=== PATIENT | male | born 1965 | race Caucasian/White ===

== ENCOUNTER 2018-05-11 09:23 | Emergency (ER) | payer OTHER ==
[~2018-05-11] VITALS: Ht 170.2 cm; Wt 82.6 kg
[2018-05-11 09:26] VITALS: BP 173/106
--- NOTE | 2018-05-11 09:33 | NUR ---
PATIENT AMBULATED TO BED 7 AT THIS TIME.
--- NOTE | 2018-05-11 09:34 | NUR ---
53/M BIB CO-WORK WITH C/O 4TH LEFT FINGER LACERATION X EARLIER TODAY. PT STATE HE WAS AT WORK AND THE MACHINE CUT HIS FINGER, + BLEEDING, PRESSURED APPLIED, ABOUT 1/2 INCH CUT. MED HX: DENIES. PATIENT STATES PAIN OF 8/10 AT THIS TIME. PATIENT POSITIONED FOR COMFORT; HOB ELEVATED; BEDRAILS UP X2; BED DOWN. ER MD MADE AWARE OF PT STATUS.
--- NOTE | 2018-05-11 09:49 | NUR ---
PT LAC IRRIGATED WITH NORMAL SALINE, DR ORDERED TO HOLD
--- NOTE | 2018-05-11 09:49 | NUR ---
Patient being evaluated by DR FLOR at bedside.
[2018-05-11] MEDS ORDERED: BUPIVACAINE-MPF 0.25% 30 ML VIAL INJ ONE (09:50)
[2018-05-11] MEDS ORDERED: LIDOCAINE 1% 500 MG/50 ML VIAL INJ SCH (09:50)
[2018-05-11] MEDS ORDERED: BUPIVACAINE MPF 0.25% 10 ML VIAL INJ ONE (10:00)
[2018-05-11] MEDS ORDERED: LIDOCAINE MPF 1% 5mL VIAL ONE (10:02)
--- NOTE | 2018-05-11 10:25 | NUR ---
SUTURE 2 STITCHES TO 4TH LEFT FINGER DONE BY DR FLOR. PT TOLERATED PROCEDURE WELL.
[2018-05-11] MEDS ORDERED: BACITRACIN OINT 500 UNITS/GM PKT TP ONE ×2 (10:55→11:04)
[2018-05-11 11:10] VITALS: BP 142/91
--- NOTE | 2018-05-11 11:10 | NUR ---
Patient discharged with v/s stable. Written and verbal after care instructions given and explained. Patient verbalized understanding. Ambulatory with steady gait. All questions addressed prior to discharge. Advised to follow up with PMD.
== END 2018-05-11 11:10 | disposition home or self-care (01) ==
LOC: MED 09:23
DX: S61.215A Laceration without foreign body of left ring finger without damage to nail, initial encounter (principal); X58.XXXA Exposure to other specified factors, initial encounter; Y93.89 Activity, other specified; Y92.69 Other specified industrial and construction area as the place of occurrence of the external cause; Y99.0 Civilian activity done for income or pay
CPT/HCPCS: 12001; 90471; 90715; 99283; J2001; J3490

== ENCOUNTER 2018-05-13 15:28 | Emergency (ER) | payer OTHER ==
[~2018-05-13] VITALS: Ht 170.2 cm; Wt 83.0 kg
[2018-05-13 15:40] VITALS: BP 145/99
--- NOTE | 2018-05-13 16:44 | NUR ---
Patient ambulated to ER bed 6
--- NOTE | 2018-05-13 16:50 | NUR ---
53Y/M FOR RECHECK OF L MIDDLE FINGER, LAC REPAIR WAS DONE ON 05/11/18, HAD 2 STITCHES, - REDNESS, - SWELLING, - DISCHARGE. PT IS AAOX4, VSS AT THIS TIME, BED DOWN, BEDRAIL UP X 1, ER MD AWARE AND NOTIFIED OF PT STATUS. NO PMH NKA
--- NOTE | 2018-05-13 17:00 | NUR ---
Patient being evaluated by physician at bedside.
[2018-05-13 17:42] VITALS: BP 140/95
== END 2018-05-13 17:42 | disposition home or self-care (01) ==
LOC: MED 15:28
DX: S61.215D Laceration without foreign body of left ring finger without damage to nail, subsequent encounter (principal); X58.XXXD Exposure to other specified factors, subsequent encounter
CPT/HCPCS: 99283

== ENCOUNTER 2018-05-20 17:19 | Emergency (ER) | payer OTHER ==
[~2018-05-20] VITALS: Ht 170.2 cm; Wt 85.9 kg
[2018-05-20 17:25] VITALS: BP 168/101
--- NOTE | 2018-05-20 17:34 | NUR ---
PT. BIB FAMILY FOR STITCH REMOVAL TO L 4TH FINGER THAT WERE PLACE ON 05/11/18. DENIES ANY FEVER OR CHILLS. . DENIES N/V/D; SKIN IS PINK/WARM/DRY; AAOX4 WITH EVEN AND STEADY GAIT; LUNGS CLEAR BL; HR EVEN AND REGULAR; PT DENIES ANY FEVER, CP, SOB, OR COUGH AT THIS TIME; VSS; PATIENT POSITIONED FOR COMFORT; HOB ELEVATED; BEDRAILS UP X2; BED DOWN. ER MD MADE AWARE OF PT STATUS.
[2018-05-20 17:52] VITALS: BP 160/74
--- NOTE | 2018-05-20 18:04 | NUR ---
RECHECKED BP BEFORE DISCHARGE PT. NOTIFIED PT'S FAMILY TO CHECK WITH PCP, PT AND PT'S FAMILY VERBALIZED UNDERSTANDING.
== END 2018-05-20 17:50 | disposition home or self-care (01) ==
LOC: MED 17:19
DX: S61.215D Laceration without foreign body of left ring finger without damage to nail, subsequent encounter (principal); X58.XXXD Exposure to other specified factors, subsequent encounter
CPT/HCPCS: 99281